=== PATIENT | female | born 1960 | race Hispanic/Latino ===

== ENCOUNTER 2018-03-20 21:53 | Emergency (ER) | payer SELFPAY ==
[~2018-03-20] VITALS: Ht 149.9 cm; Wt 59.0 kg
[2018-03-20 22:27] VITALS: BP 130/70
== END 2018-03-20 22:31 | disposition home or self-care (01) ==
LOC: ER 21:53
DX: Z48.00 Encounter for change or removal of nonsurgical wound dressing (principal)
CPT/HCPCS: 99282